=== PATIENT | male | born 1935 | race Native Hawaiian/Other Pacific Islander ===

== ENCOUNTER 2017-06-26 11:39 | Inpatient (IN) | payer MEDICARE, MEDICAID ==
[2017-06-26 18:25] LABS: PARTIAL THROMBOPLASTIN TIME 35.3 Seconds (25.6-37.1); PROTHROMBIN TIME 10.5 Seconds (9.8-13.1)
[2017-06-27 06:53] LABS: HEMOGLOBIN 14.5 g/dL (12.0-18.0); MEAN CELL VOLUME 89.3 fl (80.0-94.0); MEAN CORPUSCULAR HEMOGLOBIN 29.2 pg (27.0-31.0); MEAN CORPUSCULAR HGB CONC 32.7 g/dL (33.0-37.0); RBC 4.96 Mil/uL (4.40-5.90); RED CELL DISTRIBUTION WIDTH 15.2 % (11.5-14.5); WHITE BLOOD COUNT 5.3 K/uL (4.8-10.8)
[2017-06-27 06:59] LABS: ALB/GLOB RATIO 1.3 (1.0-2.1); ALT/SGPT 55 U/L (21-72); AST/SGOT 48 U/L (17-59); BLOOD UREA NITROGEN 18 mg/dl (9-20); GFR AFRICAN-AMERICAN > 60; GFR NON-AFRICAN AMERICAN > 60
--- NOTE | 2017-06-27 11:26 | CP.PCM.HP ---
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 Denies any episode of seizure since hospitalization. He was started on Keppra Present on Admission - Present on Admission Any Indicators Present on Admission: No History of DVT/PE: No History of Uncontrolled Diabetes: No Urinary Catheter: No Decubitus Ulcer Present: No Review of Systems - Review of Systems All systems: reviewed and no additional remarkable complaints except Past Patient History - Past Medical History & Family History Past Medical History?: Yes Past Family History: Reviewed and not pertinent - Past Social History Smoking Status: Never Smoked Alcohol: None Drugs: Denies - CARDIAC Hx Hypertension: Yes - NEUROLOGICAL HX Cerebrovascular Accident: Yes Hx Seizures: Yes - HEENT Hx Glaucoma: Yes - HEMATOLOGICAL/ONCOLOGICAL Hx AIDS: No Hx Human Immunodeficiency Virus (HIV): No - MUSCULOSKELETAL/RHEUMATOLOGICAL Hx Falls: Yes (1 year ago) - PSYCHIATRIC Hx Substance Use: No - ANESTHESIA Hx Anesthesia: No Meds Allergies/Adverse Reactions: Allergies Allergy/AdvReac Type Severity Reaction Status Date / Time No Known Allergies Allergy Verified 06/26/17 15:49 Physical Exam - Constitutional Appears: Well, No Acute Distress - Head Exam Head Exam: ATRAUMATIC, NORMAL INSPECTION, NORMOCEPHALIC - Eye Exam Additional comments: Right Eye Corneal Opacity. Decreased Acuity to the left. - ENT Exam ENT Exam: Mucous Membranes Moist, Normal Exam - Neck Exam Neck exam: Positive for: Full Rom, Normal Inspection - Respiratory Exam Respiratory Exam: Clear to Auscultation Bilateral, NORMAL BREATHING PATTERN - Cardiovascular Exam Cardiovascular Exam: REGULAR RHYTHM, +S1, +S2 - GI/Abdominal Exam GI & Abdominal Exam: Normal Bowel Sounds, Soft. absent: Tenderness - Extremities Exam Extremities exam: Positive for: normal capillary refill, pedal pulses present. Negative for: pedal edema - Back Exam Back exam: NORMAL INSPECTION. absent: CVA tenderness (L), CVA tenderness (R) - Neurological Exam Neurological exam: Abnormal Gait, Alert, Oriented x3, Reflexes Normal Additional comments: Right CN II abnormality. - Psychiatric Exam Psychiatric exam: Normal Affect, Normal Mood - Skin Skin Exam: Dry, Intact, Normal Color, Warm Results - Vital Signs Recent Vital Signs: Last Vital Signs Temp 96.4 F L 06/27/17 07:32 Pulse 57 L 06/27/17 08:23 Resp 18 06/27/17 07:32 BP 129/80 06/27/17 08:23 Pulse Ox 99 06/27/17 07:32 - Labs Result Diagrams: 06/27/17 06:00 06/27/17 06:00 Labs: Laboratory Results - last 24 hr 06/26/17 06/27/17 06/27/17 17:48 06:00 06:00 WBC 5.3 RBC 4.96 Hgb 14.5 Hct 44.3 MCV 89.3 MCH 29.2 MCHC 32.7 L RDW 15.2 H Plt Count 229 PT 10.5 INR 1.0 APTT 35.3 Sodium 141 Potassium 4.1 Chloride 107 Carbon Dioxide 25 Anion Gap 13 BUN 18 Creatinine 1.0 Est GFR ( Amer) > 60 Est GFR (Non-Af Amer) > 60 Random Glucose 88 Calcium 10.0 Total Bilirubin 0.7 AST 48 ALT 55 Alkaline Phosphatase 60 Total Protein 7.0 Albumin 4.0 Globulin 3.0 Albumin/Globulin Ratio 1.3 Assessment & Plan (1) Acute CVA (cerebrovascular accident) Assessment and Plan: Tonic Clonic Seizure Unsteady Gait Continue ASA/Lipitor PT/OT Status: Acute (2) HTN (hypertension) Assessment and Plan: Amlodipine FLORA Status: Chronic (3) Glaucoma Assessment and Plan: Ophthamology Consult Status: Chronic
[2017-06-27] MEDS: Enoxaparin 40 mg Syringe SC SCH (12:58)
--- NOTE | 2017-06-27 16:42 | CP.PCM.CON ---
History of Present Illness - History of Present Illness History of Present Illness: patient is a 81 year old freindly male admitted to acute rehab with diagnosis of cerebrovascular accident Review of Systems - Musculoskeletal Musculoskeletal: Abnormal Gait, Muscle Weakness - Neurological Neurological: Abnormal Gait, Lack of Coordination, Weakness Past Patient History - Past Medical History & Family History Past Medical History?: Yes Past Family History: Reviewed and not pertinent - Past Social History Smoking Status: Never Smoked Alcohol: None Drugs: Denies - CARDIAC Hx Hypertension: Yes - NEUROLOGICAL HX Cerebrovascular Accident: Yes Hx Seizures: Yes - HEENT Hx Glaucoma: Yes - HEMATOLOGICAL/ONCOLOGICAL Hx AIDS: No Hx Human Immunodeficiency Virus (HIV): No - MUSCULOSKELETAL/RHEUMATOLOGICAL Hx Falls: Yes (1 year ago) - PSYCHIATRIC Hx Substance Use: No - ANESTHESIA Hx Anesthesia: No Meds Allergies/Adverse Reactions: Allergies Allergy/AdvReac Type Severity Reaction Status Date / Time No Known Allergies Allergy Verified 06/26/17 15:49 - Medications Medications: Current Medications Amlodipine Besylate (Norvasc) 10 mg PO DAILY [facility] Last Admin: 06/27/17 08:23 Dose: 10 mg Aspirin (Aspirin Chewable) 81 mg PO DAILY [facility] Last Admin: 06/27/17 08:23 Dose: 81 mg Atorvastatin Calcium (Lipitor) 20 mg PO HS [facility] Last Admin: 06/26/17 21:47 Dose: 20 mg Enoxaparin Sodium (Lovenox) 40 mg SC DAILY [facility] PRN Reason: Protocol Last Admin: 06/27/17 12:58 Dose: 40 mg Famotidine (Pepcid) 20 mg PO BID [facility] Last Admin: 06/27/17 08:23 Dose: 20 mg Levetiracetam (Keppra) 250 mg PO Q12 [facility] Last Admin: 06/27/17 08:23 Dose: 250 mg Lorazepam (Ativan) 2 mg IV ONCE PRN PRN Reason: Seizure activity Physical Exam - Head Exam Head Exam: ATRAUMATIC, NORMAL INSPECTION, NORMOCEPHALIC Additional comments: at times keeps left eyelid closed - Eye Exam Eye Exam: Normal appearance - ENT Exam ENT Exam: Mucous Membranes Moist, Normal Exam - Neck Exam Neck exam: Positive for: Normal Inspection - Respiratory Exam Respiratory Exam: Clear to Auscultation Bilateral, NORMAL BREATHING PATTERN - Cardiovascular Exam Cardiovascular Exam: REGULAR RHYTHM - GI/Abdominal Exam GI & Abdominal Exam: Normal Bowel Sounds - Rectal Exam Rectal Exam: NORMAL INSPECTION - Exam External exam: NORMAL EXTERNAL EXAM - Extremities Exam Extremities exam: Positive for: normal inspection Additional comments: mild weakness in the extremities with full range of motion - Back Exam Back exam: NORMAL INSPECTION - Psychiatric Exam Psychiatric exam: Normal Affect, Normal Mood - Skin Skin Exam: Dry, Normal Color Results - Vital Signs Recent Vital Signs: Last Vital Signs Temp 96.4 F L 06/27/17 07:32 Pulse 57 L 06/27/17 08:23 Resp 18 06/27/17 07:32 BP 129/80 06/27/17 08:23 Pulse Ox 99 06/27/17 07:32 - Labs Result Diagrams: 06/27/17 06:00 06/27/17 06:00 Labs: Laboratory Results - last 24 hr 06/26/17 06/27/17 06/27/17 17:48 06:00 06:00 WBC 5.3 RBC 4.96 Hgb 14.5 Hct 44.3 MCV 89.3 MCH 29.2 MCHC 32.7 L RDW 15.2 H Plt Count 229 PT 10.5 INR 1.0 APTT 35.3 Sodium 141 Potassium 4.1 Chloride 107 Carbon Dioxide 25 Anion Gap 13 BUN 18 Creatinine 1.0 Est GFR ( Amer) > 60 Est GFR (Non-Af Amer) > 60 Random Glucose 88 Calcium 10.0 Total Bilirubin 0.7 AST 48 ALT 55 Alkaline Phosphatase 60 Total Protein 7.0 Albumin 4.0 Globulin 3.0 Albumin/Globulin Ratio 1.3 Assessment & Plan (1) Acute CVA (cerebrovascular accident) Assessment and Plan: plan for physical, occupational, rec, speech therapy for Range of motion, strengthening, transfers and gait training. Goals for Modified independent To write plan of care Status: Acute (2) Glaucoma Status: Chronic (3) HTN (hypertension) Status: Chronic
--- NOTE | 2017-06-27 18:17 | CP.PCM.PN ---
Subjective - Date & Time of Evaluation Date of Evaluation: 06/27/17 Time of Evaluation: 08:00 - Subjective Subjective: no acute complaints at present Objective - Vital Signs/Intake and Output Vital Signs (last 24 hours): Temp Pulse Resp BP Pulse Ox 96.4 F L 57 L 18 129/80 99 06/27/17 07:32 06/27/17 08:23 06/27/17 07:32 06/27/17 08:23 06/27/17 07:32 - Medications Medications: Current Medications Amlodipine Besylate (Norvasc) 10 mg PO DAILY [facility] Last Admin: 06/27/17 08:23 Dose: 10 mg Aspirin (Aspirin Chewable) 81 mg PO DAILY [facility] Last Admin: 06/27/17 08:23 Dose: 81 mg Atorvastatin Calcium (Lipitor) 20 mg PO HS [facility] Last Admin: 06/26/17 21:47 Dose: 20 mg Enoxaparin Sodium (Lovenox) 40 mg SC DAILY [facility] PRN Reason: Protocol Last Admin: 06/27/17 12:58 Dose: 40 mg Famotidine (Pepcid) 20 mg PO BID [facility] Last Admin: 06/27/17 17:30 Dose: 20 mg Levetiracetam (Keppra) 250 mg PO Q12 [facility] Last Admin: 06/27/17 08:23 Dose: 250 mg Lorazepam (Ativan) 2 mg IV ONCE PRN PRN Reason: Seizure activity - Labs Labs: 06/27/17 06:00 06/27/17 06:00 PT 10.5 Seconds (9.8-13.1) 06/26/17 17:48 INR 1.0 (0.9-1.2) 06/26/17 17:48 APTT 35.3 Seconds (25.6-37.1) 06/26/17 17:48 - Head Exam Head Exam: ATRAUMATIC, NORMAL INSPECTION, NORMOCEPHALIC - Eye Exam Eye Exam: EOMI, Normal appearance Pupil Exam: NORMAL ACCOMODATION - ENT Exam ENT Exam: Mucous Membranes Moist, Normal Exam - Neck Exam Neck Exam: Normal Inspection - Respiratory Exam Respiratory Exam: NORMAL BREATHING PATTERN - Cardiovascular Exam Cardiovascular Exam: REGULAR RHYTHM - GI/Abdominal Exam GI & Abdominal Exam: Normal Bowel Sounds - Rectal Exam Rectal Exam: NORMAL INSPECTION - Exam External exam: NORMAL EXTERNAL EXAM - Extremities Exam Extremities Exam: Normal Capillary Refill, Normal Inspection - Back Exam Back Exam: NORMAL INSPECTION - Neurological Exam Neurological Exam: Alert, Awake Neuro motor strength exam: Left Upper Extremity: 3, Right Upper Extremity: 3, Left Lower Extremity: 3, Right Lower Extremity: 3 - Psychiatric Exam Psychiatric exam: Normal Affect - Skin Skin Exam: Normal Color, Warm Assessment and Plan (1) Acute CVA (cerebrovascular accident) Assessment & Plan: plan for physical, occupational, rec and speech therapy for Rom strenghtening transfer and gait training Status: Acute (2) Glaucoma Status: Chronic (3) HTN (hypertension) Status: Chronic
--- NOTE | 2017-06-27 18:24 | CP.PCM.PN ---
Subjective - Date & Time of Evaluation Date of Evaluation: 06/27/17 Time of Evaluation: 08:00 - Subjective Subjective: no acute complaints Objective - Vital Signs/Intake and Output Vital Signs (last 24 hours): Temp Pulse Resp BP Pulse Ox 96.4 F L 57 L 18 129/80 99 06/27/17 07:32 06/27/17 08:23 06/27/17 07:32 06/27/17 08:23 06/27/17 07:32 - Medications Medications: Current Medications Amlodipine Besylate (Norvasc) 10 mg PO DAILY [facility] Last Admin: 06/27/17 08:23 Dose: 10 mg Aspirin (Aspirin Chewable) 81 mg PO DAILY [facility] Last Admin: 06/27/17 08:23 Dose: 81 mg Atorvastatin Calcium (Lipitor) 20 mg PO HS [facility] Last Admin: 06/26/17 21:47 Dose: 20 mg Enoxaparin Sodium (Lovenox) 40 mg SC DAILY [facility] PRN Reason: Protocol Last Admin: 06/27/17 12:58 Dose: 40 mg Famotidine (Pepcid) 20 mg PO BID [facility] Last Admin: 06/27/17 17:30 Dose: 20 mg Levetiracetam (Keppra) 250 mg PO Q12 [facility] Last Admin: 06/27/17 08:23 Dose: 250 mg Lorazepam (Ativan) 2 mg IV ONCE PRN PRN Reason: Seizure activity - Labs Labs: 06/27/17 06:00 06/27/17 06:00 PT 10.5 Seconds (9.8-13.1) 06/26/17 17:48 INR 1.0 (0.9-1.2) 06/26/17 17:48 APTT 35.3 Seconds (25.6-37.1) 06/26/17 17:48 - Head Exam Head Exam: ATRAUMATIC, NORMAL INSPECTION, NORMOCEPHALIC - Respiratory Exam Respiratory Exam: NORMAL BREATHING PATTERN - Cardiovascular Exam Cardiovascular Exam: REGULAR RHYTHM Assessment and Plan (1) Acute CVA (cerebrovascular accident) Assessment & Plan: pt ot rec speech Status: Acute (2) Glaucoma Status: Chronic (3) HTN (hypertension) Status: Chronic Physiatry Overall Plan of Care - Overall Plan of Care Estimated Length of Stay in Weeks: 2 (weeks) Rehab Impairment: Mobility, Gait, Cognition, Speech, Balance Etiologic Diagnosis: Cerebrovascular Accident Rehab/Medical Prognosis: Fair - Anticipated Interventions Occupational Therapy:: Yes Speech Therapy:: Yes Recreational Therapy:: Yes Other Anticipated Intervention:: Yes - Therapy Goals Ambulation: Independent Functional Positional Changes:: Independent - Discharge Plan Identification of Barriers to Discharge: Home Situation Discharge Destination: Home
[2017-06-28] MEDS: Enoxaparin 40 mg Syringe SC SCH (08:33)
--- NOTE | 2017-06-28 23:45 | CP.PCM.PN ---
Subjective - Date & Time of Evaluation Date of Evaluation: 06/28/17 Time of Evaluation: 23:40 - Subjective Subjective: Seen and examined at the bed side. Still C/O difficulty walking. Objective - Vital Signs/Intake and Output Vital Signs (last 24 hours): Temp Pulse Resp BP Pulse Ox 97.2 F L 60 19 134/76 99 06/28/17 20:47 06/28/17 20:47 06/28/17 20:47 06/28/17 20:47 06/28/17 20:47 - Medications Medications: Current Medications Amlodipine Besylate (Norvasc) 10 mg PO DAILY [facility] Last Admin: 06/28/17 08:33 Dose: 10 mg Aspirin (Aspirin Chewable) 81 mg PO DAILY [facility] Last Admin: 06/28/17 08:33 Dose: 81 mg Atorvastatin Calcium (Lipitor) 20 mg PO HS [facility] Last Admin: 06/28/17 21:09 Dose: 20 mg Enoxaparin Sodium (Lovenox) 40 mg SC DAILY [facility] PRN Reason: Protocol Last Admin: 06/28/17 08:33 Dose: 40 mg Famotidine (Pepcid) 20 mg PO BID [facility] Last Admin: 06/28/17 16:48 Dose: 20 mg Levetiracetam (Keppra) 250 mg PO Q12 [facility] Last Admin: 06/28/17 21:08 Dose: 250 mg Lorazepam (Ativan) 2 mg IV ONCE PRN PRN Reason: Seizure activity - Labs Labs: 06/27/17 06:00 06/27/17 06:00 PT 10.5 Seconds (9.8-13.1) 06/26/17 17:48 INR 1.0 (0.9-1.2) 06/26/17 17:48 APTT 35.3 Seconds (25.6-37.1) 06/26/17 17:48 - Constitutional Appears: Well, No Acute Distress - Head Exam Head Exam: ATRAUMATIC, NORMAL INSPECTION, NORMOCEPHALIC - Eye Exam Eye Exam: EOMI, Normal appearance, PERRL Pupil Exam: NORMAL ACCOMODATION, PERRL - ENT Exam ENT Exam: Mucous Membranes Moist, Normal Exam - Neck Exam Neck Exam: Full ROM, Normal Inspection. absent: Lymphadenopathy - Respiratory Exam Respiratory Exam: Clear to Ausculation Bilateral, NORMAL BREATHING PATTERN - Cardiovascular Exam Cardiovascular Exam: REGULAR RHYTHM, +S1, +S2. absent: Murmur - GI/Abdominal Exam GI & Abdominal Exam: Soft, Normal Bowel Sounds. absent: Tenderness - Extremities Exam Extremities Exam: Full ROM, Normal Capillary Refill, Normal Inspection. absent : Joint Swelling, Pedal Edema - Back Exam Back Exam: NORMAL INSPECTION - Neurological Exam Neurological Exam: Abnormal Gait, Alert, Awake, CN II-XII Intact, Motor Sensory Deficit, Oriented x3 - Psychiatric Exam Psychiatric exam: Normal Affect, Normal Mood - Skin Skin Exam: Dry, Intact, Normal Color, Warm Assessment and Plan (1) Acute CVA (cerebrovascular accident) Assessment & Plan: Tonic Clonic Seizure Unsteady Gait Continue ASA/Lipitor PT/OT Status: Acute (2) HTN (hypertension) Assessment and Plan: Amlodipine FLORA Status: Chronic (3) Glaucoma Assessment and Plan: Ophthalmology Consult Status: Chronic
[2017-06-29] MEDS: Enoxaparin 40 mg Syringe SC SCH (08:28)
--- NOTE | 2017-06-29 23:54 | CP.PCM.PN ---
Subjective - Date & Time of Evaluation Date of Evaluation: 06/29/17 Time of Evaluation: 20:00 - Subjective Subjective: Seen and examined at the bed side. States feeling better. Objective - Vital Signs/Intake and Output Vital Signs (last 24 hours): Temp Pulse Resp BP Pulse Ox 98.1 F 66 20 131/71 99 06/29/17 19:56 06/29/17 19:56 06/29/17 19:56 06/29/17 19:56 06/29/17 19:56 - Medications Medications: Current Medications Amlodipine Besylate (Norvasc) 10 mg PO DAILY [facility] Last Admin: 06/29/17 08:28 Dose: 10 mg Aspirin (Aspirin Chewable) 81 mg PO DAILY [facility] Last Admin: 06/29/17 08:27 Dose: 81 mg Atorvastatin Calcium (Lipitor) 20 mg PO HS [facility] Last Admin: 06/29/17 21:06 Dose: 20 mg Enoxaparin Sodium (Lovenox) 40 mg SC DAILY [facility] PRN Reason: Protocol Last Admin: 06/29/17 08:28 Dose: 40 mg Famotidine (Pepcid) 20 mg PO BID [facility] Last Admin: 06/29/17 16:31 Dose: 20 mg Levetiracetam (Keppra) 250 mg PO Q12 [facility] Last Admin: 06/29/17 21:06 Dose: 250 mg Lorazepam (Ativan) 2 mg IV ONCE PRN PRN Reason: Seizure activity - Labs Labs: 06/27/17 06:00 06/27/17 06:00 PT 10.5 Seconds (9.8-13.1) 06/26/17 17:48 INR 1.0 (0.9-1.2) 06/26/17 17:48 APTT 35.3 Seconds (25.6-37.1) 06/26/17 17:48 - Constitutional Appears: Well, No Acute Distress - Head Exam Head Exam: ATRAUMATIC, NORMAL INSPECTION, NORMOCEPHALIC - Eye Exam Eye Exam: EOMI, Normal appearance, PERRL Pupil Exam: NORMAL ACCOMODATION, PERRL - ENT Exam ENT Exam: Mucous Membranes Moist, Normal Exam - Neck Exam Neck Exam: Full ROM, Normal Inspection. absent: Lymphadenopathy - Respiratory Exam Respiratory Exam: Clear to Ausculation Bilateral, NORMAL BREATHING PATTERN - Cardiovascular Exam Cardiovascular Exam: REGULAR RHYTHM, +S1, +S2. absent: Murmur - GI/Abdominal Exam GI & Abdominal Exam: Soft, Normal Bowel Sounds. absent: Tenderness - Extremities Exam Extremities Exam: Full ROM, Normal Capillary Refill, Normal Inspection. absent : Joint Swelling, Pedal Edema - Back Exam Back Exam: NORMAL INSPECTION - Neurological Exam Neurological Exam: Abnormal Gait, Alert, Awake, CN II-XII Intact, Motor Sensory Deficit, Oriented x3 - Psychiatric Exam Psychiatric exam: Normal Affect, Normal Mood - Skin Skin Exam: Dry, Intact, Normal Color, Warm Assessment and Plan (1) Acute CVA (cerebrovascular accident) Assessment & Plan: Tonic Clonic Seizure Unsteady Gait Continue ASA/Lipitor PT/OT Status: Acute (2) HTN (hypertension) Assessment and Plan: Amlodipine FLORA Status: Chronic (3) Glaucoma Assessment and Plan: Ophthalmology Consult Status: Chronic
[2017-06-30 07:23] LABS: HEMOGLOBIN 14.6 g/dL (12.0-18.0); MEAN CORPUSCULAR HEMOGLOBIN 29.6 pg (27.0-31.0); MEAN CORPUSCULAR HGB CONC 33.6 g/dL (33.0-37.0); RBC 4.92 Mil/uL (4.40-5.90); RED CELL DISTRIBUTION WIDTH 15.3 % (11.5-14.5); WHITE BLOOD COUNT 5.2 K/uL (4.8-10.8)
[2017-06-30] MEDS: Enoxaparin 40 mg Syringe SC SCH (08:24)
--- NOTE | 2017-06-30 23:56 | CP.PCM.PN ---
Subjective - Date & Time of Evaluation Date of Evaluation: 06/30/17 Time of Evaluation: 17:30 - Subjective Subjective: No Complaint. Tolerating Acute rehab. Objective - Vital Signs/Intake and Output Vital Signs (last 24 hours): Temp Pulse Resp BP Pulse Ox 97.2 F L 63 20 138/74 98 06/30/17 20:07 06/30/17 20:07 06/30/17 20:07 06/30/17 20:07 06/30/17 20:07 - Medications Medications: Current Medications Amlodipine Besylate (Norvasc) 10 mg PO DAILY [facility] Last Admin: 06/30/17 08:23 Dose: 10 mg Aspirin (Aspirin Chewable) 81 mg PO DAILY [facility] Last Admin: 06/30/17 08:24 Dose: 81 mg Atorvastatin Calcium (Lipitor) 20 mg PO HS [facility] Last Admin: 06/30/17 21:03 Dose: 20 mg Enoxaparin Sodium (Lovenox) 40 mg SC DAILY [facility] PRN Reason: Protocol Famotidine (Pepcid) 20 mg PO BID [facility] Last Admin: 06/30/17 16:24 Dose: 20 mg Levetiracetam (Keppra) 250 mg PO Q12 [facility] Last Admin: 06/30/17 21:03 Dose: 250 mg Lorazepam (Ativan) 2 mg IV ONCE PRN PRN Reason: Seizure activity - Labs Labs: 06/30/17 06:00 06/27/17 06:00 PT 10.5 Seconds (9.8-13.1) 06/26/17 17:48 INR 1.0 (0.9-1.2) 06/26/17 17:48 APTT 35.3 Seconds (25.6-37.1) 06/26/17 17:48 - Constitutional Appears: Well, No Acute Distress - Head Exam Head Exam: ATRAUMATIC, NORMAL INSPECTION, NORMOCEPHALIC - Eye Exam Eye Exam: EOMI, Normal appearance, PERRL Pupil Exam: NORMAL ACCOMODATION, PERRL - ENT Exam ENT Exam: Mucous Membranes Moist, Normal Exam - Neck Exam Neck Exam: Full ROM, Normal Inspection. absent: Lymphadenopathy - Respiratory Exam Respiratory Exam: Clear to Ausculation Bilateral, NORMAL BREATHING PATTERN - Cardiovascular Exam Cardiovascular Exam: REGULAR RHYTHM, +S1, +S2. absent: Murmur - GI/Abdominal Exam GI & Abdominal Exam: Soft, Normal Bowel Sounds. absent: Tenderness - Extremities Exam Extremities Exam: Full ROM, Normal Capillary Refill, Normal Inspection. absent : Joint Swelling, Pedal Edema - Back Exam Back Exam: NORMAL INSPECTION - Neurological Exam Neurological Exam: Abnormal Gait, Alert, Awake, CN II-XII Intact, Motor Sensory Deficit, Oriented x3 - Psychiatric Exam Psychiatric exam: Normal Affect, Normal Mood - Skin Skin Exam: Dry, Intact, Normal Color, Warm Assessment and Plan (1) Acute CVA (cerebrovascular accident) Assessment & Plan: Tonic Clonic Seizure Unsteady Gait Continue ASA/Lipitor PT/OT Status: Acute (2) HTN (hypertension) Assessment and Plan: Amlodipine FLORA Status: Chronic (3) Glaucoma Assessment and Plan: Ophthalmology Consult Status: Chronic
[2017-07-01] MEDS: Enoxaparin 40 mg Syringe SC SCH (08:04)
--- NOTE | 2017-07-01 17:25 | CP.PCM.PN ---
Subjective - Date & Time of Evaluation Date of Evaluation: 06/29/17 Time of Evaluation: 23:00 - Subjective Subjective: no acute complaints Objective - Vital Signs/Intake and Output Vital Signs (last 24 hours): Temp Pulse Resp BP Pulse Ox 96.8 F L 54 L 18 137/69 100 07/01/17 07:34 07/01/17 08:03 07/01/17 07:34 07/01/17 08:03 07/01/17 07:34 - Medications Medications: Current Medications Amlodipine Besylate (Norvasc) 10 mg PO DAILY [facility] Last Admin: 07/01/17 08:03 Dose: 10 mg Aspirin (Aspirin Chewable) 81 mg PO DAILY [facility] Last Admin: 07/01/17 08:04 Dose: 81 mg Atorvastatin Calcium (Lipitor) 20 mg PO HS [facility] Last Admin: 06/30/17 21:03 Dose: 20 mg Enoxaparin Sodium (Lovenox) 40 mg SC DAILY [facility] PRN Reason: Protocol Last Admin: 07/01/17 08:04 Dose: 40 mg Famotidine (Pepcid) 20 mg PO BID [facility] Last Admin: 07/01/17 17:10 Dose: 20 mg Levetiracetam (Keppra) 250 mg PO Q12 [facility] Last Admin: 07/01/17 08:04 Dose: 250 mg Lorazepam (Ativan) 2 mg IV ONCE PRN PRN Reason: Seizure activity - Labs Labs: 06/30/17 06:00 06/27/17 06:00 PT 10.5 Seconds (9.8-13.1) 06/26/17 17:48 INR 1.0 (0.9-1.2) 06/26/17 17:48 APTT 35.3 Seconds (25.6-37.1) 06/26/17 17:48 - Head Exam Head Exam: ATRAUMATIC, NORMAL INSPECTION, NORMOCEPHALIC - Eye Exam Eye Exam: EOMI, Normal appearance, PERRL Pupil Exam: NORMAL ACCOMODATION - ENT Exam ENT Exam: Mucous Membranes Moist, Normal Exam - Respiratory Exam Respiratory Exam: NORMAL BREATHING PATTERN - Cardiovascular Exam Cardiovascular Exam: REGULAR RHYTHM - GI/Abdominal Exam GI & Abdominal Exam: Soft, Normal Bowel Sounds - Rectal Exam Rectal Exam: NORMAL INSPECTION - Exam External exam: NORMAL EXTERNAL EXAM - Extremities Exam Extremities Exam: Normal Capillary Refill, Normal Inspection - Back Exam Back Exam: NORMAL INSPECTION - Neurological Exam Neurological Exam: Alert, Awake Neuro motor strength exam: Left Upper Extremity: 3, Right Upper Extremity: 3, Left Lower Extremity: 3, Right Lower Extremity: 3 - Psychiatric Exam Psychiatric exam: Normal Affect, Normal Mood - Skin Skin Exam: Normal Color Assessment and Plan (1) Acute CVA (cerebrovascular accident) Assessment & Plan: physical, occupational, rec and speech therapy Status: Chronic (2) Glaucoma Status: Chronic (3) HTN (hypertension) Status: Chronic
--- NOTE | 2017-07-01 17:27 | CP.PCM.PN ---
Subjective - Date & Time of Evaluation Date of Evaluation: 07/01/17 Time of Evaluation: 14:00 - Subjective Subjective: no acute complaints eating in bed Objective - Vital Signs/Intake and Output Vital Signs (last 24 hours): Temp Pulse Resp BP Pulse Ox 96.8 F L 54 L 18 137/69 100 07/01/17 07:34 07/01/17 08:03 07/01/17 07:34 07/01/17 08:03 07/01/17 07:34 - Medications Medications: Current Medications Amlodipine Besylate (Norvasc) 10 mg PO DAILY [facility] Last Admin: 07/01/17 08:03 Dose: 10 mg Aspirin (Aspirin Chewable) 81 mg PO DAILY [facility] Last Admin: 07/01/17 08:04 Dose: 81 mg Atorvastatin Calcium (Lipitor) 20 mg PO HS [facility] Last Admin: 06/30/17 21:03 Dose: 20 mg Enoxaparin Sodium (Lovenox) 40 mg SC DAILY [facility] PRN Reason: Protocol Last Admin: 07/01/17 08:04 Dose: 40 mg Famotidine (Pepcid) 20 mg PO BID [facility] Last Admin: 07/01/17 17:10 Dose: 20 mg Levetiracetam (Keppra) 250 mg PO Q12 [facility] Last Admin: 07/01/17 08:04 Dose: 250 mg Lorazepam (Ativan) 2 mg IV ONCE PRN PRN Reason: Seizure activity - Labs Labs: 06/30/17 06:00 06/27/17 06:00 PT 10.5 Seconds (9.8-13.1) 06/26/17 17:48 INR 1.0 (0.9-1.2) 06/26/17 17:48 APTT 35.3 Seconds (25.6-37.1) 06/26/17 17:48 - Head Exam Head Exam: ATRAUMATIC, NORMAL INSPECTION, NORMOCEPHALIC - Eye Exam Eye Exam: EOMI, Normal appearance, PERRL Pupil Exam: NORMAL ACCOMODATION - ENT Exam ENT Exam: Mucous Membranes Moist, Normal Exam - Respiratory Exam Respiratory Exam: NORMAL BREATHING PATTERN - Cardiovascular Exam Cardiovascular Exam: REGULAR RHYTHM - GI/Abdominal Exam GI & Abdominal Exam: Soft - Rectal Exam Rectal Exam: NORMAL INSPECTION - Exam External exam: NORMAL EXTERNAL EXAM - Extremities Exam Extremities Exam: Normal Capillary Refill, Normal Inspection - Back Exam Back Exam: NORMAL INSPECTION - Neurological Exam Neurological Exam: Alert, Awake Neuro motor strength exam: Left Upper Extremity: 3, Right Upper Extremity: 3, Left Lower Extremity: 3, Right Lower Extremity: 3 - Psychiatric Exam Psychiatric exam: Normal Affect, Normal Mood - Skin Skin Exam: Dry, Intact Assessment and Plan (1) Acute CVA (cerebrovascular accident) Assessment & Plan: plan for Pt, Ot , speech and rec team conference for am Status: Chronic (2) Glaucoma Status: Chronic (3) HTN (hypertension) Status: Chronic
--- NOTE | 2017-07-01 19:05 | CP.PCM.PN ---
Subjective - Date & Time of Evaluation Date of Evaluation: 07/01/17 Time of Evaluation: 18:30 Objective - Vital Signs/Intake and Output Vital Signs (last 24 hours): Temp Pulse Resp BP Pulse Ox 96.8 F L 54 L 18 137/69 100 07/01/17 07:34 07/01/17 08:03 07/01/17 07:34 07/01/17 08:03 07/01/17 07:34 - Medications Medications: Current Medications Amlodipine Besylate (Norvasc) 10 mg PO DAILY [facility] Last Admin: 07/01/17 08:03 Dose: 10 mg Aspirin (Aspirin Chewable) 81 mg PO DAILY [facility] Last Admin: 07/01/17 08:04 Dose: 81 mg Atorvastatin Calcium (Lipitor) 20 mg PO HS [facility] Last Admin: 06/30/17 21:03 Dose: 20 mg Enoxaparin Sodium (Lovenox) 40 mg SC DAILY [facility] PRN Reason: Protocol Last Admin: 07/01/17 08:04 Dose: 40 mg Famotidine (Pepcid) 20 mg PO BID [facility] Last Admin: 07/01/17 17:10 Dose: 20 mg Levetiracetam (Keppra) 250 mg PO Q12 [facility] Last Admin: 07/01/17 08:04 Dose: 250 mg Lorazepam (Ativan) 2 mg IV ONCE PRN PRN Reason: Seizure activity - Labs Labs: 06/30/17 06:00 06/27/17 06:00 PT 10.5 Seconds (9.8-13.1) 06/26/17 17:48 INR 1.0 (0.9-1.2) 06/26/17 17:48 APTT 35.3 Seconds (25.6-37.1) 06/26/17 17:48 Assessment and Plan (1) Acute CVA (cerebrovascular accident) Status: Chronic
[2017-07-02] MEDS: Enoxaparin 40 mg Syringe SC SCH (08:26)
--- NOTE | 2017-07-02 12:07 | PSY.TMCNF ---
Nursing - Vital Signs Vital Signs (Last 8 hours): Vital Signs 07/02/17 07/02/17 07:31 08:27 Temperature 96.8 F L Pulse Rate 55 L 55 L Respiratory 18 Rate Blood Pressure 124/64 124/64 O2 Sat by Pulse 99 Oximetry Pain: 0 - Medications/Other Issues Comment: Pt at low nutritional risk. no goals. Follow-up due on 07/06/2017 - Bladder Management Bladder Pattern: Normal Voiding Method: Toilet, Urinal - Bowel Management Bowel Pattern: Normal - Goals/Time Frame Comments: Pt was seen awake and alert sitting in his wheelchair in his room. Pt' s son Terry present in the room as well. Pt and pt's son agreeable to participate in session. Pt's son preferred to translate and answer questions on behalf of pt. Pt's son also asked him questions as well and pt provided approriate responses. Pt enjoys reading, listening to music, and watching television. Pt's son stated that pt might have interest in leisure tasks involving numbers. Pt's son reported that pt has decrease vision in R eye. Pt's mood was stable- positive during visit and agreeable to participate in recreation therapy sessions. Pt then engaged in group bingo session and required contact guard assist throughout task for number recogniton and to slide down the marker on the card. Physical Therapy - Bed Mobility Bed Mobility: Contact Guard - Transfers Sit to Stand: Verbal Cues, Contact Guard - Ambulation Level of Assistance: Verbal Cues, Contact Guard Distance (ft.): 175 Assistive Devices: Single point cane, Rolling Walker - Stair Negotiation Stairs: Level of Assistance: Verbal Cues, Contact Guard Number of Stairs: 11 Stairs: Assistive Devices: Right Handrail, Single point cane - Standing Balance Static Stand: Contact Guard Assist Dynamic Stand: Contact Guard Assist, Minimal Assistance - Insight/Carryover Insight/Carryover: Good - Patient/Family Education Comment: Stroke recovery, POC, role of OT, safety and fall prevention - Assessment/Plan Assessment: Pt progressing with ADLs and ADL transfers, requires continued OT services to address coordination, strength, endurance and dynamic balance to maximize safety and independence with ADLs and functional mobility - Goals Timeframe: 2 weeks Goals: S with bathing. S with tub bench. MOD I UE dressing. MOD I LE dressing. I grooming. I eating. MOD I toileting. MOD I toilet txfer - Provider Therapist: stevie License Number: [id number] Occupational Therapy - Arousal/Attention/Orientation Level of Consciousness: Awake, Alert Patient Orientation: Person, Place, Time, Appropriate to Age, Appropriate to Situation - ADL/IADL Self Feeding: Set-up Help Grooming: Supervision, Verbal Cues, Set-up Help Dressing-Upper Extremity: Supervision, Verbal Cues, Set-up Help Dressing-Lower Extremity: Supervision, Set-up Help, Minimal Assistance - Sitting Balance Static Sitting: Supervision Dynamic Sitting: Contact Guard Assist - Transfers Wheelchair to Bed Transfers: Verbal Cues, Set-up Help, Contact Guard Toilet Transfers: Supervision, Verbal Cues, Set-up Help, Contact Guard - Wheelchair Management Level of Assistance: Not Applicable - Upper Extremity Status Right Upper Extremity Comment: ROM WFL. shoulder 4-/5 all other joints 4/5 Left Upper Extremity Comment: mild dexterity impairement L hand. ROM WFL. shoulder 4-/5 all other joints 4/5 - Insight/Carryover Insight/Carryover: Good - Patient/Family Education Comment: Stroke recovery, POC, role of OT, safety and fall prevention - Assessment/Plan Assessment: Pt progressing with ADLs and ADL transfers, requires continued OT services to address coordination, strength, endurance and dynamic balance to maximize safety and independence with ADLs and functional mobility - Goals Timeframe: 2 weeks Goals: S with bathing. S with tub bench. MOD I UE dressing. MOD I LE dressing. I grooming. I eating. MOD I toileting. MOD I toilet txfer - Provider Therapist: Pau Ball License Number: [id number] Speech Therapy - Plan Assessment: Pt progressing with ADLs and ADL transfers, requires continued OT services to address coordination, strength, endurance and dynamic balance to maximize safety and independence with ADLs and functional mobility Recreational Therapy - Participation Participation: Participates in Individual and/or Group Sessions, Monitors His/ Her Own Leisure Time - Attendance Attendance: 3-5 times per week - Activities Leisure Activities: Reading - Socialization Level of Socialization: Initiates/interacts freely with care givers and peer - Diversional Time Diversional Time: reading newspaper - Assessment Assessment/Plan: Pt progressing with ADLs and ADL transfers, requires continued OT services to address coordination, strength, endurance and dynamic balance to maximize safety and independence with ADLs and functional mobility - Provider Therapist: Em Meyer [employer] #[id number] Nutrition - Current Diet Current Diet/ Supplement/ Feedings: Heart healtlhy - Appetite Percent Meal Consumed: 75-100% - Assessment/Goals/Time Frame Assessment/Goals/Time Frame: Pt at low nutritional risk. no goals. Follow-up due on 07/06/2017 - Provider Provider: Lisa Leonard RD Case Management - Discharge Plan Discharge Plan: Home with significant other/family Rehabilitation Plan - Treatment Plan Treatment Plan: Physical Therapy, Occupational Therapy, Dietary, Patient/Family Education - Recommendation Recommendation: Physical Therapy, Occupational Therapy, Dietary, Patient/Family Education - Discharge Plan Discharge to: Home (Dc 18)
--- NOTE | 2017-07-02 13:48 | CP.PCM.PN ---
Subjective - Date & Time of Evaluation Date of Evaluation: 07/02/17 Time of Evaluation: 11:00 - Subjective Subjective: no acute complaints Objective - Vital Signs/Intake and Output Vital Signs (last 24 hours): Temp Pulse Resp BP Pulse Ox 96.8 F L 55 L 18 124/64 99 07/02/17 07:31 07/02/17 08:27 07/02/17 07:31 07/02/17 08:27 07/02/17 07:31 - Medications Medications: Current Medications Amlodipine Besylate (Norvasc) 10 mg PO DAILY [facility] Last Admin: 07/02/17 08:27 Dose: 10 mg Aspirin (Aspirin Chewable) 81 mg PO DAILY [facility] Last Admin: 07/02/17 08:27 Dose: 81 mg Atorvastatin Calcium (Lipitor) 20 mg PO HS [facility] Last Admin: 07/01/17 21:08 Dose: 20 mg Enoxaparin Sodium (Lovenox) 40 mg SC DAILY [facility] PRN Reason: Protocol Last Admin: 07/02/17 08:26 Dose: 40 mg Famotidine (Pepcid) 20 mg PO BID [facility] Last Admin: 07/02/17 08:27 Dose: 20 mg Levetiracetam (Keppra) 250 mg PO Q12 [facility] Last Admin: 07/02/17 08:27 Dose: 250 mg Lorazepam (Ativan) 2 mg IV ONCE PRN PRN Reason: Seizure activity - Labs Labs: 06/30/17 06:00 06/27/17 06:00 PT 10.5 Seconds (9.8-13.1) 06/26/17 17:48 INR 1.0 (0.9-1.2) 06/26/17 17:48 APTT 35.3 Seconds (25.6-37.1) 06/26/17 17:48 - Head Exam Head Exam: ATRAUMATIC, NORMAL INSPECTION, NORMOCEPHALIC - Eye Exam Eye Exam: EOMI, Normal appearance, PERRL Pupil Exam: NORMAL ACCOMODATION - ENT Exam ENT Exam: Mucous Membranes Moist, Normal Exam - Respiratory Exam Respiratory Exam: NORMAL BREATHING PATTERN - Cardiovascular Exam Cardiovascular Exam: REGULAR RHYTHM - GI/Abdominal Exam GI & Abdominal Exam: Normal Bowel Sounds - Rectal Exam Rectal Exam: NORMAL INSPECTION - Exam External exam: NORMAL EXTERNAL EXAM - Extremities Exam Extremities Exam: Normal Capillary Refill - Back Exam Back Exam: NORMAL INSPECTION - Neurological Exam Neurological Exam: Alert, Awake Neuro motor strength exam: Left Upper Extremity: 3, Right Upper Extremity: 3, Left Lower Extremity: 3, Right Lower Extremity: 3 - Psychiatric Exam Psychiatric exam: Normal Affect, Normal Mood - Skin Skin Exam: Normal Color Assessment and Plan (1) Acute CVA (cerebrovascular accident) Assessment & Plan: Pt, Ot Rec status post team discussed Dc planning with paula Status: Chronic (2) Glaucoma Status: Chronic (3) HTN (hypertension) Status: Chronic
--- NOTE | 2017-07-02 23:40 | CP.PCM.PN ---
Subjective - Date & Time of Evaluation Date of Evaluation: 07/02/17 Time of Evaluation: 18:15 Objective - Vital Signs/Intake and Output Vital Signs (last 24 hours): Temp Pulse Resp BP Pulse Ox 97.0 F L 62 20 122/66 98 07/02/17 19:47 07/02/17 19:47 07/02/17 19:47 07/02/17 19:47 07/02/17 19:47 - Medications Medications: Current Medications Amlodipine Besylate (Norvasc) 10 mg PO DAILY [facility] Last Admin: 07/02/17 08:27 Dose: 10 mg Aspirin (Aspirin Chewable) 81 mg PO DAILY [facility] Last Admin: 07/02/17 08:27 Dose: 81 mg Atorvastatin Calcium (Lipitor) 20 mg PO HS [facility] Last Admin: 07/02/17 21:03 Dose: 20 mg Enoxaparin Sodium (Lovenox) 40 mg SC DAILY [facility] PRN Reason: Protocol Last Admin: 07/02/17 08:26 Dose: 40 mg Famotidine (Pepcid) 20 mg PO BID [facility] Last Admin: 07/02/17 16:46 Dose: 20 mg Levetiracetam (Keppra) 250 mg PO Q12 [facility] Last Admin: 07/02/17 21:04 Dose: 250 mg Lorazepam (Ativan) 2 mg IV ONCE PRN PRN Reason: Seizure activity - Labs Labs: 06/30/17 06:00 06/27/17 06:00 PT 10.5 Seconds (9.8-13.1) 06/26/17 17:48 INR 1.0 (0.9-1.2) 06/26/17 17:48 APTT 35.3 Seconds (25.6-37.1) 06/26/17 17:48 Assessment and Plan (1) Acute CVA (cerebrovascular accident) Status: Chronic
[2017-07-03 07:07] LABS: BASO # 0.1 K/uL (0.0-0.2); EOS # 0.3 K/uL (0.0-0.7); EOS % 6.6 % (0.0-4.0); HEMOGLOBIN 14.7 g/dL (12.0-18.0); LYMPH # 1.8 K/uL (1.0-4.3); LYMPH % 33.7 % (20.0-40.0); MEAN CELL VOLUME 89.5 fl (80.0-94.0); MEAN CORPUSCULAR HEMOGLOBIN 29.5 pg (27.0-31.0); MEAN CORPUSCULAR HGB CONC 32.9 g/dL (33.0-37.0); MEAN PLATELET VOLUME 7.7 fl (7.2-11.7); MONO # 0.5 K/uL (0.0-0.8); MONO % 9.5 % (0.0-10.0); NEUT # 2.6 K/uL (1.8-7.0); NEUT % 49.2 % (50.0-75.0); RBC 4.99 Mil/uL (4.40-5.90); WHITE BLOOD COUNT 5.2 K/uL (4.8-10.8)
[2017-07-03] MEDS: Enoxaparin 40 mg Syringe SC SCH (08:27)
--- NOTE | 2017-07-03 19:42 | CP.PCM.PN ---
Subjective - Date & Time of Evaluation Date of Evaluation: 07/03/17 Time of Evaluation: 19:15 Objective - Vital Signs/Intake and Output Vital Signs (last 24 hours): Temp Pulse Resp BP Pulse Ox 98.1 F 59 L 22 131/71 97 07/03/17 08:14 07/03/17 08:27 07/03/17 08:14 07/03/17 08:27 07/03/17 08:14 - Medications Medications: Current Medications Amlodipine Besylate (Norvasc) 10 mg PO DAILY [facility] Last Admin: 07/03/17 08:27 Dose: 10 mg Aspirin (Aspirin Chewable) 81 mg PO DAILY [facility] Last Admin: 07/03/17 08:26 Dose: 81 mg Atorvastatin Calcium (Lipitor) 20 mg PO HS [facility] Last Admin: 07/02/17 21:03 Dose: 20 mg Enoxaparin Sodium (Lovenox) 40 mg SC DAILY [facility] PRN Reason: Protocol Last Admin: 07/03/17 08:27 Dose: 40 mg Famotidine (Pepcid) 20 mg PO BID [facility] Last Admin: 07/03/17 16:51 Dose: 20 mg Levetiracetam (Keppra) 250 mg PO Q12 [facility] Last Admin: 07/03/17 08:26 Dose: 250 mg Lorazepam (Ativan) 2 mg IV ONCE PRN PRN Reason: Seizure activity - Labs Labs: 07/03/17 06:20 06/27/17 06:00 PT 10.5 Seconds (9.8-13.1) 06/26/17 17:48 INR 1.0 (0.9-1.2) 06/26/17 17:48 APTT 35.3 Seconds (25.6-37.1) 06/26/17 17:48 Assessment and Plan (1) Acute CVA (cerebrovascular accident) Status: Chronic
[2017-07-04 07:35] LABS: BASO # 0.1 K/uL (0.0-0.2); BASO % 0.9 % (0.0-2.0); EOS # 0.4 K/uL (0.0-0.7); EOS % 6.7 % (0.0-4.0); HEMOGLOBIN 14.7 g/dL (12.0-18.0); LYMPH # 2.2 K/uL (1.0-4.3); LYMPH % 38.9 % (20.0-40.0); MEAN CELL VOLUME 88.6 fl (80.0-94.0); MEAN CORPUSCULAR HEMOGLOBIN 29.8 pg (27.0-31.0); MEAN CORPUSCULAR HGB CONC 33.7 g/dL (33.0-37.0); MEAN PLATELET VOLUME 7.6 fl (7.2-11.7); MONO # 0.5 K/uL (0.0-0.8); MONO % 9.5 % (0.0-10.0); NEUT # 2.4 K/uL (1.8-7.0); NRBC % 0.1 % (0.0-0.0); RBC 4.92 Mil/uL (4.40-5.90); RED CELL DISTRIBUTION WIDTH 14.7 % (11.5-14.5); WHITE BLOOD COUNT 5.5 K/uL (4.8-10.8)
[2017-07-04] MEDS: Enoxaparin 40 mg Syringe SC SCH (08:35)
--- NOTE | 2017-07-04 12:24 | CP.PCM.PN ---
Subjective - Date & Time of Evaluation Date of Evaluation: 07/04/17 Time of Evaluation: 11:15 - Subjective Subjective: Seen and Examined at the bed side. Still unsteady gait as per the [employer]. Objective - Vital Signs/Intake and Output Vital Signs (last 24 hours): Temp Pulse Resp BP Pulse Ox 97.9 F 60 20 123/70 99 07/04/17 07:58 07/04/17 08:35 07/04/17 07:58 07/04/17 08:35 07/04/17 07:58 - Medications Medications: Current Medications Amlodipine Besylate (Norvasc) 10 mg PO DAILY [facility] Last Admin: 07/04/17 08:35 Dose: 10 mg Aspirin (Aspirin Chewable) 81 mg PO DAILY [facility] Last Admin: 07/04/17 08:34 Dose: 81 mg Atorvastatin Calcium (Lipitor) 20 mg PO HS [facility] Last Admin: 07/03/17 21:01 Dose: 20 mg Enoxaparin Sodium (Lovenox) 40 mg SC DAILY [facility] PRN Reason: Protocol Last Admin: 07/04/17 08:35 Dose: 40 mg Famotidine (Pepcid) 20 mg PO BID [facility] Last Admin: 07/04/17 08:36 Dose: 20 mg Levetiracetam (Keppra) 250 mg PO Q12 [facility] Last Admin: 07/04/17 08:35 Dose: 250 mg Lorazepam (Ativan) 2 mg IV ONCE PRN PRN Reason: Seizure activity - Labs Labs: 07/04/17 06:40 06/27/17 06:00 PT 10.5 Seconds (9.8-13.1) 06/26/17 17:48 INR 1.0 (0.9-1.2) 06/26/17 17:48 APTT 35.3 Seconds (25.6-37.1) 06/26/17 17:48 - Constitutional Appears: Well, No Acute Distress - Head Exam Head Exam: ATRAUMATIC, NORMAL INSPECTION, NORMOCEPHALIC - Eye Exam Additional comments: Left corneal Opacity. L:egally Blind. - ENT Exam ENT Exam: Mucous Membranes Moist, Normal Exam - Neck Exam Neck Exam: Full ROM, Normal Inspection. absent: Lymphadenopathy - Respiratory Exam Respiratory Exam: Clear to Ausculation Bilateral, NORMAL BREATHING PATTERN - Cardiovascular Exam Cardiovascular Exam: REGULAR RHYTHM, +S1, +S2. absent: Murmur - GI/Abdominal Exam GI & Abdominal Exam: Soft, Normal Bowel Sounds. absent: Tenderness - Extremities Exam Extremities Exam: Full ROM, Normal Capillary Refill, Normal Inspection. absent : Joint Swelling, Pedal Edema - Back Exam Back Exam: NORMAL INSPECTION - Neurological Exam Neurological Exam: Abnormal Gait, Alert, Awake, Oriented x3 - Psychiatric Exam Psychiatric exam: Normal Affect, Normal Mood - Skin Skin Exam: Dry, Intact, Normal Color, Warm Assessment and Plan (1) Acute CVA (cerebrovascular accident) Assessment & Plan: Tonic Clonic Seizure Unsteady Gait Improving Continue ASA/Lipitor PT/OT Status: Acute (2) HTN (hypertension) Assessment and Plan: Amlodipine FLORA Status: Chronic (3) Glaucoma Assessment and Plan: Ophthalmology Consult Status: Chronic Status: Chronic
--- NOTE | 2017-07-04 20:42 | PN ---
SUBJECTIVE: Patient is feeling fine, no acute complaints at present, lying in bed. PHYSICAL EXAMINATION: VITAL SIGNS: Stable. NECK: Supple. CHEST: Symmetrical. HEART: Sounds S1, S2. ABDOMEN: Benign. EXTREMITIES: No clubbing, cyanosis or edema. IMPRESSION: Acute cardiovascular accident, ICD code 01.4; hypertension; seizure; glaucoma; gait difficulty. PLAN: Physical therapy, occupational therapy, recreational therapy, and speech therapy. Range of motion strengthening, transfers, ambulation, and gait training. Dominick Whiteside MD
[2017-07-05] MEDS: Enoxaparin 40 mg Syringe SC SCH (08:56)
--- NOTE | 2017-07-05 23:20 | CP.PCM.PN ---
Subjective - Date & Time of Evaluation Date of Evaluation: 07/05/17 Time of Evaluation: 16:20 Objective - Vital Signs/Intake and Output Vital Signs (last 24 hours): Temp Pulse Resp BP Pulse Ox 98.4 F 70 18 146/68 97 07/05/17 20:28 07/05/17 20:28 07/05/17 20:28 07/05/17 20:28 07/05/17 20:28 - Medications Medications: Current Medications Amlodipine Besylate (Norvasc) 10 mg PO DAILY [facility] Last Admin: 07/05/17 08:56 Dose: 10 mg Aspirin (Aspirin Chewable) 81 mg PO DAILY [facility] Last Admin: 07/05/17 08:57 Dose: 81 mg Atorvastatin Calcium (Lipitor) 20 mg PO HS [facility] Last Admin: 07/05/17 21:11 Dose: 20 mg Enoxaparin Sodium (Lovenox) 40 mg SC DAILY [facility] PRN Reason: Protocol Last Admin: 07/05/17 08:56 Dose: 40 mg Famotidine (Pepcid) 20 mg PO BID [facility] Last Admin: 07/05/17 17:23 Dose: 20 mg Levetiracetam (Keppra) 250 mg PO Q12 [facility] Last Admin: 07/05/17 21:11 Dose: 250 mg Lorazepam (Ativan) 2 mg IV ONCE PRN PRN Reason: Seizure activity - Labs Labs: 07/04/17 06:40 06/27/17 06:00 PT 10.5 Seconds (9.8-13.1) 06/26/17 17:48 INR 1.0 (0.9-1.2) 06/26/17 17:48 APTT 35.3 Seconds (25.6-37.1) 06/26/17 17:48 Assessment and Plan (1) Acute CVA (cerebrovascular accident) Status: Chronic
[2017-07-06] MEDS: Enoxaparin 40 mg Syringe SC SCH (08:27)
--- NOTE | 2017-07-06 15:03 | CP.PCM.PN ---
Subjective - Date & Time of Evaluation Date of Evaluation: 07/05/17 Time of Evaluation: 11:00 - Subjective Subjective: no acute complaints at present Objective - Vital Signs/Intake and Output Vital Signs (last 24 hours): Temp Pulse Resp BP Pulse Ox 97.9 F 63 20 134/74 99 07/06/17 08:00 07/06/17 08:26 07/06/17 08:00 07/06/17 08:26 07/06/17 08:00 - Medications Medications: Current Medications Amlodipine Besylate (Norvasc) 10 mg PO DAILY [facility] Last Admin: 07/06/17 08:26 Dose: 10 mg Aspirin (Aspirin Chewable) 81 mg PO DAILY [facility] Last Admin: 07/06/17 08:26 Dose: 81 mg Atorvastatin Calcium (Lipitor) 20 mg PO HS [facility] Last Admin: 07/05/17 21:11 Dose: 20 mg Enoxaparin Sodium (Lovenox) 40 mg SC DAILY [facility] PRN Reason: Protocol Last Admin: 07/06/17 08:27 Dose: 40 mg Enoxaparin Sodium (Lovenox) 40 mg SC DAILY [facility] PRN Reason: Protocol Famotidine (Pepcid) 20 mg PO BID [facility] Last Admin: 07/06/17 08:27 Dose: 20 mg Levetiracetam (Keppra) 250 mg PO Q12 [facility] Last Admin: 07/06/17 08:26 Dose: 250 mg Lorazepam (Ativan) 2 mg IV ONCE PRN PRN Reason: Seizure activity - Labs Labs: 07/04/17 06:40 06/27/17 06:00 PT 10.5 Seconds (9.8-13.1) 06/26/17 17:48 INR 1.0 (0.9-1.2) 06/26/17 17:48 APTT 35.3 Seconds (25.6-37.1) 06/26/17 17:48 - Head Exam Head Exam: ATRAUMATIC, NORMAL INSPECTION, NORMOCEPHALIC - Eye Exam Eye Exam: EOMI, Normal appearance Pupil Exam: NORMAL ACCOMODATION, PERRL - ENT Exam ENT Exam: Mucous Membranes Moist, Normal Exam - Respiratory Exam Respiratory Exam: NORMAL BREATHING PATTERN - Cardiovascular Exam Cardiovascular Exam: REGULAR RHYTHM - GI/Abdominal Exam GI & Abdominal Exam: Normal Bowel Sounds - Rectal Exam Rectal Exam: NORMAL INSPECTION - Exam External exam: NORMAL EXTERNAL EXAM - Extremities Exam Extremities Exam: Normal Capillary Refill, Normal Inspection - Back Exam Back Exam: NORMAL INSPECTION - Neurological Exam Neurological Exam: Alert, Awake Neuro motor strength exam: Left Upper Extremity: 3, Right Upper Extremity: 3, Left Lower Extremity: 3, Right Lower Extremity: 3 - Psychiatric Exam Psychiatric exam: Normal Affect - Skin Skin Exam: Dry, Normal Color Assessment and Plan (1) Acute CVA (cerebrovascular accident) Assessment & Plan: plan for physical, occupational,rec and speech therapy to continue to monitor vitals and skin Status: Chronic (2) Glaucoma Status: Chronic (3) HTN (hypertension) Status: Chronic
--- NOTE | 2017-07-06 23:55 | CP.PCM.PN ---
Subjective - Date & Time of Evaluation Date of Evaluation: 07/06/17 Time of Evaluation: 15:30 Objective - Vital Signs/Intake and Output Vital Signs (last 24 hours): Temp Pulse Resp BP Pulse Ox 96.9 F L 59 L 20 105/65 99 07/06/17 20:43 07/06/17 20:43 07/06/17 20:43 07/06/17 20:43 07/06/17 20:43 - Medications Medications: Current Medications Amlodipine Besylate (Norvasc) 10 mg PO DAILY [facility] Last Admin: 07/06/17 08:26 Dose: 10 mg Aspirin (Aspirin Chewable) 81 mg PO DAILY [facility] Last Admin: 07/06/17 08:26 Dose: 81 mg Atorvastatin Calcium (Lipitor) 20 mg PO HS [facility] Last Admin: 07/06/17 21:17 Dose: 20 mg Enoxaparin Sodium (Lovenox) 40 mg SC DAILY [facility] PRN Reason: Protocol Famotidine (Pepcid) 20 mg PO BID [facility] Last Admin: 07/06/17 17:10 Dose: 20 mg Levetiracetam (Keppra) 250 mg PO Q12 [facility] Last Admin: 07/06/17 21:17 Dose: 250 mg Lorazepam (Ativan) 2 mg IV ONCE PRN PRN Reason: Seizure activity - Labs Labs: 07/04/17 06:40 06/27/17 06:00 PT 10.5 Seconds (9.8-13.1) 06/26/17 17:48 INR 1.0 (0.9-1.2) 06/26/17 17:48 APTT 35.3 Seconds (25.6-37.1) 06/26/17 17:48 Assessment and Plan (1) Acute CVA (cerebrovascular accident) Status: Chronic
[2017-07-07 07:22] LABS: HEMOGLOBIN 14.6 g/dL (12.0-18.0); MEAN CELL VOLUME 89.2 fl (80.0-94.0); MEAN CORPUSCULAR HEMOGLOBIN 29.6 pg (27.0-31.0); MEAN CORPUSCULAR HGB CONC 33.2 g/dL (33.0-37.0); RBC 4.93 Mil/uL (4.40-5.90); RED CELL DISTRIBUTION WIDTH 14.8 % (11.5-14.5); WHITE BLOOD COUNT 5.9 K/uL (4.8-10.8)
[2017-07-07 08:49] LABS: BLOOD UREA NITROGEN 19 mg/dl (9-20); GFR AFRICAN-AMERICAN > 60; GFR NON-AFRICAN AMERICAN > 60
[2017-07-07] MEDS: Enoxaparin 40 mg Syringe SC SCH (12:58)
--- NOTE | 2017-07-08 01:12 | CP.PCM.PN ---
Subjective - Date & Time of Evaluation Date of Evaluation: 07/07/17 Time of Evaluation: 14:00 Objective - Vital Signs/Intake and Output Vital Signs (last 24 hours): Temp Pulse Resp BP Pulse Ox 97.6 F 72 20 133/70 98 07/07/17 20:11 07/07/17 20:11 07/07/17 20:11 07/07/17 20:11 07/07/17 20:11 - Medications Medications: Current Medications Amlodipine Besylate (Norvasc) 10 mg PO DAILY [facility] Last Admin: 07/07/17 08:18 Dose: 10 mg Aspirin (Aspirin Chewable) 81 mg PO DAILY [facility] Last Admin: 07/07/17 08:17 Dose: 81 mg Atorvastatin Calcium (Lipitor) 20 mg PO HS [facility] Last Admin: 07/07/17 21:49 Dose: 20 mg Enoxaparin Sodium (Lovenox) 40 mg SC DAILY [facility] PRN Reason: Protocol Last Admin: 07/07/17 12:58 Dose: 40 mg Famotidine (Pepcid) 20 mg PO BID [facility] Last Admin: 07/07/17 16:31 Dose: 20 mg Levetiracetam (Keppra) 250 mg PO Q12 [facility] Last Admin: 07/07/17 21:49 Dose: 250 mg Lorazepam (Ativan) 2 mg IV ONCE PRN PRN Reason: Seizure activity - Labs Labs: 07/07/17 06:00 07/07/17 08:19 PT 10.5 Seconds (9.8-13.1) 06/26/17 17:48 INR 1.0 (0.9-1.2) 06/26/17 17:48 APTT 35.3 Seconds (25.6-37.1) 06/26/17 17:48 Assessment and Plan (1) Acute CVA (cerebrovascular accident) Status: Chronic
[2017-07-08] MEDS: Enoxaparin 40 mg Syringe SC SCH (08:18)
--- NOTE | 2017-07-08 16:16 | CP.PCM.PN ---
Subjective - Date & Time of Evaluation Date of Evaluation: 07/08/17 Time of Evaluation: 16:00 Objective - Vital Signs/Intake and Output Vital Signs (last 24 hours): Temp Pulse Resp BP Pulse Ox 97.7 F 68 20 123/65 98 07/08/17 09:37 07/08/17 09:37 07/08/17 09:37 07/08/17 09:37 07/08/17 09:37 - Medications Medications: Current Medications Amlodipine Besylate (Norvasc) 10 mg PO DAILY [facility] Last Admin: 07/08/17 08:19 Dose: 10 mg Aspirin (Aspirin Chewable) 81 mg PO DAILY [facility] Last Admin: 07/08/17 08:19 Dose: 81 mg Atorvastatin Calcium (Lipitor) 20 mg PO HS [facility] Last Admin: 07/07/17 21:49 Dose: 20 mg Enoxaparin Sodium (Lovenox) 40 mg SC DAILY [facility] PRN Reason: Protocol Last Admin: 07/08/17 08:18 Dose: 40 mg Famotidine (Pepcid) 20 mg PO BID [facility] Last Admin: 07/08/17 08:19 Dose: 20 mg Levetiracetam (Keppra) 250 mg PO Q12 [facility] Last Admin: 07/08/17 08:19 Dose: 250 mg Lorazepam (Ativan) 2 mg IV ONCE PRN PRN Reason: Seizure activity - Labs Labs: 07/07/17 06:00 07/07/17 08:19 PT 10.5 Seconds (9.8-13.1) 06/26/17 17:48 INR 1.0 (0.9-1.2) 06/26/17 17:48 APTT 35.3 Seconds (25.6-37.1) 06/26/17 17:48 Assessment and Plan (1) Acute CVA (cerebrovascular accident) Status: Chronic
[2017-07-09] MEDS: Enoxaparin 40 mg Syringe SC SCH (09:13)
--- NOTE | 2017-07-09 12:20 | PSY.TMCNF ---
Nursing - Vital Signs Vital Signs (Last 8 hours): Vital Signs 07/09/17 07/09/17 07/09/17 09:00 09:12 09:40 Temperature 97.7 F 97.7 F Pulse Rate 62 62 Respiratory 20 20 Rate Blood Pressure 140/68 140/68 140/68 O2 Sat by Pulse 96 Oximetry Pain: 0 - Precautions: Precautions: Fall Prevention - Medications/Other Issues Comment: Needs intermittent supervision and instructions for safety - Consults Comment: Dr. Whiteside - Toileting Toileting: Contact Guard - Bladder Management Bladder Pattern: Normal Voiding Method: Toilet, Urinal Bladder Management: Supervision Frequency of Accidents: 0 - Bowel Management Bowel Pattern: Normal Bowel Management: Supervision Frequency of Accidents: 0 - Transfers Transfers: Supervision - ADL's ADL's: Supervision - Pain Management Comments: denies - Patient/Family Teaching Comments: CARE POST CVA AND SAFETY PRECAUTIONS - Goals/Time Frame Comments: PER MULTIDISCIPLINARY CARE PLAN GOALS - Provider Provider: ISAK RICHARDSN RN CRRN Physical Therapy - Bed Mobility Bed Mobility: Supervision - Transfers Wheelchair to Mat: Supervision, Verbal Cues Sit to Stand: Supervision, Verbal Cues - Ambulation Level of Assistance: Supervision, Verbal Cues, Contact Guard Distance (ft.): 250 Assistive Devices: N/A, Single point cane - Stair Negotiation Stairs: Level of Assistance: Supervision, Verbal Cues Number of Stairs: 11 Stairs: Assistive Devices: Right Handrail, Single point cane - Standing Balance Static Stand: Supervision Dynamic Stand: Contact Guard Assist - Pain Pain (assessed during therapy session): 0 - Insight/Carryover Insight/Carryover: Good - Patient/Family Education Comment: Pt education provided for increased safety awareness and proper techniques during funcitonal mobility training. Caregiver training scheduled tomorrow with pts family. - Assessment/Plan Assessment: Pt continues to be agreeable to participate in recreation therapy sessions. Pt has continued to demonstrate improvement and does well with dominoes task, jigsaw puzzle task, and bingo task with peers. Pt's mood continues to be stable-positive. Pt presents with increase arousal level, attention to task, and turn taking. - Goals Timeframe: 10 days Goals: Sit < > supine independnet. Sit < > stand transfers mod I. Pt will ambulate 300 ft with supervision without device. Pt will ascend/descend flight of stairs with one handrail and supervision - Provider Therapist: Bela Altamirano PT, DPT License Number: [id number] Occupational Therapy - Arousal/Attention/Orientation Patient Orientation: Person, Place, Time, Appropriate to Age, Appropriate to Situation - ADL/IADL Self Feeding: Modified Independent Grooming: Supervision, Verbal Cues, Set-up Help Dressing-Upper Extremity: Supervision, Verbal Cues, Set-up Help Dressing-Lower Extremity: Supervision, Set-up Help, Contact Guard - Sitting Balance Static Sitting: Independent with upper extremity support Dynamic Sitting: Requires supervision - Transfers Wheelchair to Bed Transfers: Verbal Cues, Set-up Help, Contact Guard Toilet Transfers: Verbal Cues, Set-up Help, Contact Guard - Wheelchair Management Level of Assistance: Not Applicable - Upper Extremity Status Right Upper Extremity Comment: ROM WFL. shoulder 4-/5 all other joints 4/5 Left Upper Extremity Comment: mild dexterity impairement L hand. ROM WFL. shoulder 4-/5 all other joints 4/5 - Pain Pain (assessed during therapy session): 0 - Insight/Carryover Insight/Carryover: Good - Patient/Family Education Comment: Pt education provided for increased safety awareness and proper techniques during funcitonal mobility training. Caregiver training scheduled tomorrow with pts family. - Assessment/Plan Assessment: Pt continues to be agreeable to participate in recreation therapy sessions. Pt has continued to demonstrate improvement and does well with dominoes task, jigsaw puzzle task, and bingo task with peers. Pt's mood continues to be stable-positive. Pt presents with increase arousal level, attention to task, and turn taking. - Goals Timeframe: 10 days Goals: Sit < > supine independnet. Sit < > stand transfers mod I. Pt will ambulate 300 ft with supervision without device. Pt will ascend/descend flight of stairs with one handrail and supervision - Provider Therapist: Pau Ball Speech [facility] - Plan Assessment: Pt continues to be agreeable to participate in recreation therapy sessions. Pt has continued to demonstrate improvement and does well with dominoes task, jigsaw puzzle task, and bingo task with peers. Pt's mood continues to be stable-positive. Pt presents with increase arousal level, attention to task, and turn taking. Recreational Therapy - Participation Participation: Participates in Individual and/or Group Sessions - Attendance Attendance: 3-5 times per week - Activities Leisure Activities: Reading - Socialization Level of Socialization: Initiates/interacts freely with care givers and peer - Diversional Time Diversional Time: reading newspaper - Assessment Assessment/Plan: Pt continues to be agreeable to participate in recreation therapy sessions. Pt has continued to demonstrate improvement and does well with dominoes task, jigsaw puzzle task, and bingo task with peers. Pt's mood continues to be stable-positive. Pt presents with increase arousal level, attention to task, and turn taking. Problems Currently Limiting Participation: decrease vision in R eye, language barrier, decrease safety awareness level Goals and Time Frame: Pt will be encouraged to participate in 1:1 and group recreation therapy sessions 3-5x week to improve leisure awareness level, attention to task, direction following, and problem solving. - Provider Therapist: Em Meyer, DEPARTMENT CLERK #[id number] Nutrition - Current Diet Current Diet/ Supplement/ Feedings: Heart healthy - Appetite Percent Meal Consumed: 75-100% - Comments Comments: CARE POST CVA AND SAFETY PRECAUTIONS - Assessment/Goals/Time Frame Assessment/Goals/Time Frame: Needs intermittent supervision and instructions for safety - Provider Provider: Lisa Leonard RD Case Management - Psychosocial Assessment Support Systems: Pt resides with spouse who does meal prep for patient; Pt also has supportive daughter in law Elma [phone]. Patient attends day program and has a [employer] BU[employer]DER M, W, F, in [place] (Family will clarify name of agencies) Psychological Interventions/Needs: Pt is Mandarin Speaking alert and oriented x3 , forgetful (per family, some cognitive impairments at baseline) Discharge Concerns: Spouse expresses concern about pt's ability to toilet and bathe as she is unable to physically assist him; Reassured pt's family regarding goals for supervision level for pt Patient/Family Meeting: CM met with pt with Certified Mandarin Speaking perioperative manager as well as son Terry with pt's consent Intervention/Goal/Outcome:: 1. Pt's insurance RN LUKE Gray provided continued auth stay for pt through discharge; Tentative d/c date: 07/11/17. GOAL: 24hr supervision overall. 3. Son will provide name of agencies and will bring pt's straight cane from home to use during therapy and for adjustment by therapy staff - Per son, sister in law Elma will be available early next week for formal caregiver training and education; will also possibly bring pt's spouse. Continuing to follow for safe discharge and support. - Discharge Plan Discharge Plan: Home with significant other/family, Home with services Comment: Will reinstate medical day services and [employer] services - Provider Provider: GAMAL Sanchez, [employer] License Number: [id number] Rehabilitation Plan - Treatment Plan Treatment Plan: Physical Therapy, Occupational Therapy, Dietary, Patient/Family Education - Recommendation Recommendation: Physical Therapy, Occupational Therapy, Dietary, Patient/Family Education - Discharge Plan Discharge to: Home (Dc 18)
--- NOTE | 2017-07-09 19:28 | CP.PCM.PN ---
Subjective - Date & Time of Evaluation Date of Evaluation: 07/09/17 Time of Evaluation: 10:00 - Subjective Subjective: patient alert sitting,no acute complaints at present Objective - Vital Signs/Intake and Output Vital Signs (last 24 hours): Temp Pulse Resp BP Pulse Ox 97.7 F 62 20 140/68 96 07/09/17 09:40 07/09/17 09:40 07/09/17 09:40 07/09/17 09:40 07/09/17 09:40 - Medications Medications: Current Medications Amlodipine Besylate (Norvasc) 10 mg PO DAILY [facility] Last Admin: 07/09/17 09:12 Dose: 10 mg Aspirin (Aspirin Chewable) 81 mg PO DAILY [facility] Last Admin: 07/09/17 09:12 Dose: 81 mg Atorvastatin Calcium (Lipitor) 20 mg PO HS [facility] Last Admin: 07/08/17 21:23 Dose: 20 mg Enoxaparin Sodium (Lovenox) 40 mg SC DAILY [facility] PRN Reason: Protocol Last Admin: 07/09/17 09:13 Dose: 40 mg Famotidine (Pepcid) 20 mg PO BID [facility] Last Admin: 07/09/17 17:15 Dose: 20 mg Levetiracetam (Keppra) 250 mg PO Q12 [facility] Last Admin: 07/09/17 09:13 Dose: 250 mg Lorazepam (Ativan) 2 mg IV ONCE PRN PRN Reason: Seizure activity - Labs Labs: 07/07/17 06:00 07/07/17 08:19 PT 10.5 Seconds (9.8-13.1) 06/26/17 17:48 INR 1.0 (0.9-1.2) 06/26/17 17:48 APTT 35.3 Seconds (25.6-37.1) 06/26/17 17:48 - Head Exam Head Exam: ATRAUMATIC, NORMAL INSPECTION, NORMOCEPHALIC - Eye Exam Eye Exam: EOMI, Normal appearance - ENT Exam ENT Exam: Mucous Membranes Moist - Neck Exam Neck Exam: Normal Inspection - Respiratory Exam Respiratory Exam: Clear to Ausculation Bilateral, NORMAL BREATHING PATTERN - Cardiovascular Exam Cardiovascular Exam: REGULAR RHYTHM - GI/Abdominal Exam GI & Abdominal Exam: Normal Bowel Sounds - Rectal Exam Rectal Exam: NORMAL INSPECTION - Exam External exam: NORMAL EXTERNAL EXAM - Extremities Exam Extremities Exam: Normal Capillary Refill - Back Exam Back Exam: NORMAL INSPECTION - Neurological Exam Neurological Exam: Alert, Awake Neuro motor strength exam: Left Upper Extremity: 3, Right Upper Extremity: 3, Left Lower Extremity: 3, Right Lower Extremity: 3 - Psychiatric Exam Psychiatric exam: Normal Affect, Normal Mood - Skin Skin Exam: Dry, Normal Color Assessment and Plan (1) Acute CVA (cerebrovascular accident) Assessment & Plan: discussed with physical, occupational, rec discussed with family dc planning equipment Status: Chronic (2) Glaucoma Status: Chronic (3) HTN (hypertension) Status: Chronic
--- NOTE | 2017-07-09 19:49 | CP.PCM.PN ---
Subjective - Date & Time of Evaluation Date of Evaluation: 07/08/17 Time of Evaluation: 15:00 - Subjective Subjective: no acute complaints of pain, Objective - Vital Signs/Intake and Output Vital Signs (last 24 hours): Temp Pulse Resp BP Pulse Ox 97.7 F 62 20 140/68 96 07/09/17 09:40 07/09/17 09:40 07/09/17 09:40 07/09/17 09:40 07/09/17 09:40 - Medications Medications: Current Medications Amlodipine Besylate (Norvasc) 10 mg PO DAILY [facility] Last Admin: 07/09/17 09:12 Dose: 10 mg Aspirin (Aspirin Chewable) 81 mg PO DAILY [facility] Last Admin: 07/09/17 09:12 Dose: 81 mg Atorvastatin Calcium (Lipitor) 20 mg PO HS [facility] Last Admin: 07/08/17 21:23 Dose: 20 mg Enoxaparin Sodium (Lovenox) 40 mg SC DAILY [facility] PRN Reason: Protocol Last Admin: 07/09/17 09:13 Dose: 40 mg Famotidine (Pepcid) 20 mg PO BID [facility] Last Admin: 07/09/17 17:15 Dose: 20 mg Levetiracetam (Keppra) 250 mg PO Q12 [facility] Last Admin: 07/09/17 09:13 Dose: 250 mg Lorazepam (Ativan) 2 mg IV ONCE PRN PRN Reason: Seizure activity - Labs Labs: 07/07/17 06:00 07/07/17 08:19 PT 10.5 Seconds (9.8-13.1) 06/26/17 17:48 INR 1.0 (0.9-1.2) 06/26/17 17:48 APTT 35.3 Seconds (25.6-37.1) 06/26/17 17:48 - Head Exam Head Exam: ATRAUMATIC, NORMAL INSPECTION, NORMOCEPHALIC - Eye Exam Eye Exam: EOMI, Normal appearance Pupil Exam: NORMAL ACCOMODATION, PERRL - ENT Exam ENT Exam: Mucous Membranes Moist, Normal Exam - Neck Exam Neck Exam: Normal Inspection - Respiratory Exam Respiratory Exam: Clear to Ausculation Bilateral, NORMAL BREATHING PATTERN - Cardiovascular Exam Cardiovascular Exam: REGULAR RHYTHM - GI/Abdominal Exam GI & Abdominal Exam: Soft, Normal Bowel Sounds - Rectal Exam Rectal Exam: NORMAL INSPECTION - Exam External exam: NORMAL EXTERNAL EXAM - Extremities Exam Extremities Exam: Normal Capillary Refill, Normal Inspection - Back Exam Back Exam: NORMAL INSPECTION - Neurological Exam Neurological Exam: Alert, Awake Neuro motor strength exam: Left Upper Extremity: 3, Right Upper Extremity: 3, Left Lower Extremity: 3, Right Lower Extremity: 3 - Psychiatric Exam Psychiatric exam: Normal Affect, Normal Mood - Skin Skin Exam: Dry, Normal Color Assessment and Plan (1) Acute CVA (cerebrovascular accident) Assessment & Plan: physical, occupational and rec therapy Status: Chronic (2) Glaucoma Status: Chronic (3) HTN (hypertension) Status: Chronic
[2017-07-10 07:30] LABS: HEMOGLOBIN 14.6 g/dL (12.0-18.0); MEAN CELL VOLUME 88.5 fl (80.0-94.0); MEAN CORPUSCULAR HGB CONC 33.9 g/dL (33.0-37.0); RBC 4.87 Mil/uL (4.40-5.90); RED CELL DISTRIBUTION WIDTH 14.9 % (11.5-14.5); WHITE BLOOD COUNT 5.4 K/uL (4.8-10.8)
[2017-07-10] MEDS: Enoxaparin 40 mg Syringe SC SCH (08:13)
[2017-07-10 20:14] VITALS: PULSE 70
--- NOTE | 2017-07-10 23:46 | CP.PCM.PN ---
Subjective - Date & Time of Evaluation Date of Evaluation: 07/10/17 Time of Evaluation: 15:00 Objective - Vital Signs/Intake and Output Vital Signs (last 24 hours): Temp Pulse Resp BP Pulse Ox 98.0 F 70 20 133/75 99 07/10/17 20:13 07/10/17 20:13 07/10/17 20:13 07/10/17 20:13 07/10/17 20:13 - Medications Medications: Current Medications Amlodipine Besylate (Norvasc) 10 mg PO DAILY [facility] Last Admin: 07/10/17 08:14 Dose: 10 mg Aspirin (Aspirin Chewable) 81 mg PO DAILY [facility] Last Admin: 07/10/17 08:14 Dose: 81 mg Atorvastatin Calcium (Lipitor) 20 mg PO HS [facility] Last Admin: 07/10/17 21:17 Dose: 20 mg Enoxaparin Sodium (Lovenox) 40 mg SC DAILY [facility] PRN Reason: Protocol Last Admin: 07/10/17 08:13 Dose: 40 mg Famotidine (Pepcid) 20 mg PO BID [facility] Last Admin: 07/10/17 17:38 Dose: 20 mg Levetiracetam (Keppra) 250 mg PO Q12 [facility] Last Admin: 07/10/17 21:16 Dose: 250 mg Lorazepam (Ativan) 2 mg IV ONCE PRN PRN Reason: Seizure activity - Labs Labs: 07/10/17 06:30 07/07/17 08:19 PT 10.5 Seconds (9.8-13.1) 06/26/17 17:48 INR 1.0 (0.9-1.2) 06/26/17 17:48 APTT 35.3 Seconds (25.6-37.1) 06/26/17 17:48 Assessment and Plan (1) Acute CVA (cerebrovascular accident) Status: Chronic
[2017-07-11] MEDS: Enoxaparin 40 mg Syringe SC SCH (09:05)
[2017-07-11 09:09] VITALS: BP 124/71; RESP 18; TEMP 97.3; O2SAT 100
--- NOTE | 2017-07-11 10:39 | CP.PCM.PN ---
Subjective - Date & Time of Evaluation Date of Evaluation: 07/11/17 Time of Evaluation: 10:40 Objective - Vital Signs/Intake and Output Vital Signs (last 24 hours): Temp Pulse Resp BP Pulse Ox 97.3 F L 70 18 124/71 100 07/11/17 09:09 07/11/17 09:09 07/11/17 09:09 07/11/17 09:09 07/11/17 09:09 - Medications Medications: Current Medications Amlodipine Besylate (Norvasc) 10 mg PO DAILY [facility] Last Admin: 07/11/17 09:05 Dose: 10 mg Aspirin (Aspirin Chewable) 81 mg PO DAILY [facility] Last Admin: 07/11/17 09:05 Dose: 81 mg Atorvastatin Calcium (Lipitor) 20 mg PO HS [facility] Last Admin: 07/10/17 21:17 Dose: 20 mg Enoxaparin Sodium (Lovenox) 40 mg SC DAILY [facility] PRN Reason: Protocol Last Admin: 07/11/17 09:05 Dose: 40 mg Famotidine (Pepcid) 20 mg PO BID [facility] Last Admin: 07/11/17 09:05 Dose: 20 mg Levetiracetam (Keppra) 250 mg PO Q12 [facility] Last Admin: 07/11/17 09:05 Dose: 250 mg Lorazepam (Ativan) 2 mg IV ONCE PRN PRN Reason: Seizure activity - Labs Labs: 07/10/17 06:30 07/07/17 08:19 PT 10.5 Seconds (9.8-13.1) 06/26/17 17:48 INR 1.0 (0.9-1.2) 06/26/17 17:48 APTT 35.3 Seconds (25.6-37.1) 06/26/17 17:48 Assessment and Plan (1) Acute CVA (cerebrovascular accident) Status: Chronic
--- NOTE | 2017-07-11 20:31 | CP.PCM.PN ---
Subjective - Date & Time of Evaluation Date of Evaluation: 07/04/17 Time of Evaluation: 09:00 - Subjective Subjective: no acute complaints at present Objective - Vital Signs/Intake and Output Vital Signs (last 24 hours): Temp Pulse Resp BP Pulse Ox 97.3 F L 70 18 124/71 100 07/11/17 09:09 07/11/17 09:09 07/11/17 09:09 07/11/17 09:09 07/11/17 09:09 - Labs Labs: 07/10/17 06:30 07/07/17 08:19 PT 10.5 Seconds (9.8-13.1) 06/26/17 17:48 INR 1.0 (0.9-1.2) 06/26/17 17:48 APTT 35.3 Seconds (25.6-37.1) 06/26/17 17:48 - Head Exam Head Exam: ATRAUMATIC, NORMAL INSPECTION, NORMOCEPHALIC - Eye Exam Eye Exam: EOMI, Normal appearance Pupil Exam: NORMAL ACCOMODATION, PERRL - ENT Exam ENT Exam: Mucous Membranes Moist, Normal Exam - Neck Exam Neck Exam: Normal Inspection - Respiratory Exam Respiratory Exam: Clear to Ausculation Bilateral, NORMAL BREATHING PATTERN - Cardiovascular Exam Cardiovascular Exam: REGULAR RHYTHM - GI/Abdominal Exam GI & Abdominal Exam: Normal Bowel Sounds - Rectal Exam Rectal Exam: NORMAL INSPECTION - Exam External exam: NORMAL EXTERNAL EXAM - Extremities Exam Extremities Exam: Normal Capillary Refill, Normal Inspection - Back Exam Back Exam: NORMAL INSPECTION - Neurological Exam Neurological Exam: Alert, Awake Neuro motor strength exam: Left Upper Extremity: 3, Right Upper Extremity: 3, Left Lower Extremity: 3, Right Lower Extremity: 3 - Psychiatric Exam Psychiatric exam: Normal Affect - Skin Skin Exam: Warm Assessment and Plan (1) Acute CVA (cerebrovascular accident) Assessment & Plan: plan for pt, ot , rec for Dc today discussed Dc with family Status: Chronic (2) Glaucoma Status: Chronic (3) HTN (hypertension) Status: Chronic
--- NOTE | 2017-07-14 23:33 | CP.PCM.DIS ---
Provider - Provider Date of Admission: 06/26/17 15:53 Attending physician: Anu Beltre MD Time Spent in preparation of Discharge (in minutes): 25 Diagnosis - Discharge Diagnosis (1) Acute CVA (cerebrovascular accident) Status: Chronic Hospital Course - Lab Results Lab Results: Most Recent Lab Values WBC 5.4 K/uL (4.8-10.8) 07/10/17 06:30 RBC 4.87 Mil/uL (4.40-5.90) 07/10/17 06:30 Hgb 14.6 g/dL (12.0-18.0) 07/10/17 06:30 Hct 43.1 % (35.0-51.0) 07/10/17 06:30 MCV 88.5 fl (80.0-94.0) 07/10/17 06:30 MCH 30.0 pg (27.0-31.0) 07/10/17 06:30 MCHC 33.9 g/dL (33.0-37.0) 07/10/17 06:30 RDW 14.9 % (11.5-14.5) H 07/10/17 06:30 Plt Count 252 K/uL (130-400) 07/10/17 06:30 MPV 7.6 fl (7.2-11.7) 07/04/17 06:40 Neut % (Auto) 44.0 % (50.0-75.0) L 07/04/17 06:40 Lymph % (Auto) 38.9 % (20.0-40.0) 07/04/17 06:40 [place] % (Auto) 9.5 % (0.0-10.0) 07/04/17 06:40 Eos % (Auto) 6.7 % (0.0-4.0) H 07/04/17 06:40 Baso % (Auto) 0.9 % (0.0-2.0) 07/04/17 06:40 Neut # 2.4 K/uL (1.8-7.0) 07/04/17 06:40 Lymph # 2.2 K/uL (1.0-4.3) 07/04/17 06:40 [place] # 0.5 K/uL (0.0-0.8) 07/04/17 06:40 Eos # 0.4 K/uL (0.0-0.7) 07/04/17 06:40 Baso # 0.1 K/uL (0.0-0.2) 07/04/17 06:40 PT 10.5 Seconds (9.8-13.1) 06/26/17 17:48 INR 1.0 (0.9-1.2) 06/26/17 17:48 APTT 35.3 Seconds (25.6-37.1) 06/26/17 17:48 Sodium 140 mmol/l (132-148) 07/07/17 08:19 Potassium 4.3 MMOL/L (3.6-5.0) 07/07/17 08:19 Chloride 106 mmol/L (98-107) 07/07/17 08:19 Carbon Dioxide 25 mmol/L (22-30) 07/07/17 08:19 Anion Gap 14 (10-20) 07/07/17 08:19 BUN 19 mg/dl (9-20) 07/07/17 08:19 Creatinine 1.0 mg/dL (0.8-1.5) 07/07/17 08:19 Est GFR ( Amer) > 60 07/07/17 08:19 Est GFR (Non-Af Amer) > 60 07/07/17 08:19 Random Glucose 103 mg/dL (75-110) 07/07/17 08:19 Calcium 10.0 mg/dL (8.4-10.2) 07/07/17 08:19 Total Bilirubin 0.7 mg/dl (0.2-1.3) 06/27/17 06:00 AST 48 U/L (17-59) 06/27/17 06:00 ALT 55 U/L (21-72) 06/27/17 06:00 Alkaline Phosphatase 60 U/L (38-126) 06/27/17 06:00 Total Protein 7.0 G/DL (6.3-8.2) 06/27/17 06:00 Albumin 4.0 g/dL (3.5-5.0) 06/27/17 06:00 Globulin 3.0 gm/dL (2.2-3.9) 06/27/17 06:00 Albumin/Globulin Ratio 1.3 (1.0-2.1) 06/27/17 06:00 Discharge Exam - Head Exam Head Exam: ATRAUMATIC, NORMAL INSPECTION, NORMOCEPHALIC Discharge Plan - Follow Up Plan Condition: GOOD Disposition: DISCHARGED TO HOME CARE Instructions: Famotidine (By mouth), Aspirin (By mouth), Amlodipine (By mouth) , Atorvastatin (By mouth), Levetiracetam (By mouth), Fall Prevention for Older Adults (GEN), Ischemic Stroke (DC)
== END 2017-07-11 15:30 | disposition home health service (06) | DRG 57 ==
LOC: EDSEX 15:53
PROVIDERS: ADMIT Internal Medicine; ATTEND Internal Medicine
PROC: F08Z1FZ Dressing Techniques Treatment using Assistive, Adaptive, Supportive or Protective Equipment (ICD-10-PCS; principal; 2017-06-26)
PROC: F08Z4FZ Home Management Treatment using Assistive, Adaptive, Supportive or Protective Equipment (ICD-10-PCS; 2017-06-26)
PROC: F07Z9FZ Gait Training/Functional Ambulation Treatment using Assistive, Adaptive, Supportive or Protective Equipment (ICD-10-PCS; 2017-06-26)
PROC: F07L6FZ Therapeutic Exercise Treatment of Musculoskeletal System - Lower Back / Lower Extremity using Assistive, Adaptive, Supportive or Protective Equipment (ICD-10-PCS; 2017-06-26)
DX: I69.398 Other sequelae of cerebral infarction (principal); G40.909 Epilepsy, unspecified, not intractable, without status epilepticus; I10 Essential (primary) hypertension; H40.9 Unspecified glaucoma; R26.81 Unsteadiness on feet